=== PATIENT | male | born 1975 | race Caucasian/White ===

== ENCOUNTER 2018-08-18 21:18 | Emergency (ER) | payer MEDICAID ==
[~2018-08-18] VITALS: Ht 172.7 cm; Wt 109.8 kg
--- NOTE | 2018-08-18 21:30 | NUR ---
Pt ambulates to ER with c/o dog bite from a stray dog 2 hrs ago in [facility]. Laceration on left middle finger. Denies any numbness/tingling in fingers/hand.
[2018-08-18] MEDS ORDERED: NEOMY/BACITRA/POLYMYXIN B OINT UD PACKET TP ONE ×2 (21:43→21:45)
[2018-08-18] MEDS ORDERED: HYDROCODONE/APAP 10-325 MG TABLET ONE (21:44)
[2018-08-18] MEDS ORDERED: HYDROCODONE/APAP 10-325 MG TABLET PO ONE (21:45)
[2018-08-18] MEDS ORDERED: TDAP DIPH,PERTUSS,TET VAC/PF 0.5 ML DISP.SYRIN IM ONE ×2 (21:45→21:58)
--- NOTE | 2018-08-18 21:46 | NUR ---
X-ray at bedside.
--- NOTE | 2018-08-18 21:46 | NUR ---
GORGE JO speaking to [facility] (Public Health) on telephone.
--- NOTE | 2018-08-18 22:16 | NUR ---
Dr. Jimbo PENNINGTON MD speaking to [facility] Public [facility] informing us no to rabies series.
[2018-08-18] MEDS ORDERED: SULFAMETH/TRIMETH 800/160 MG TABLET PO ONE (22:30)
[2018-08-18] MEDS ORDERED: AMOXICILLIN-CLAVUL 875-125MG TABLET ONE (22:30)
[2018-08-18] MEDS ORDERED: SULFAMETH/TRIMETH 800/160 MG TABLET ONE (22:30)
[2018-08-18] MEDS ORDERED: AMOXICILLIN-CLAVUL 875-125MG TABLET PO ONE (22:30)
--- NOTE | 2018-08-18 22:41 | NUR ---
Patient discharged to home in stable conditon. Written and verbal after care instructions given. Patient verbalizes understanding of instructions. Pt ambulated out of ER in steady gait w cousin who will drive him home. Pt understands to have wound check in 2 days. All belongings w pt. NAD noted.
[2018-08-18 22:51] VITALS: BP 148/88
== END 2018-08-18 22:51 | disposition home or self-care (01) ==
LOC: ER 21:18
DX: S61.432A Puncture wound without foreign body of left hand, initial encounter (principal); S61.452A Open bite of left hand, initial encounter; W54.0XXA Bitten by dog, initial encounter; Y93.89 Activity, other specified; Y92.89 Other specified places as the place of occurrence of the external cause; Y99.8 Other external cause status
CPT/HCPCS: 73130; 90715; A4217; A4663

== ENCOUNTER 2018-08-21 01:49 | Emergency (ER) | payer MEDICAID ==
[~2018-08-21] VITALS: Ht 170.2 cm; Wt 97.5 kg
--- NOTE | 2018-08-21 03:30 | NUR ---
Dr Collins into eval patient
[2018-08-21] MEDS ORDERED: PIPERACILLIN/TAZOBACTAM/D5W 50 ML IV ONE (03:41)
[2018-08-21] MEDS ORDERED: PIPERACILLIN SODIUM/TAZOBACTAM 3.375 G in IV DEXTROSE 5% 50 ML IV ONE (03:45)
[2018-08-21 03:55] LABS: BASOPHILS # (AUTO) 0.1 K/uL (0.0-8.0); BASOPHILS % (AUTO) 1.1 % (0.0-2.0); EOSINOPHILS # (AUTO) 0.2 K/uL (0.0-0.7); HEMATOCRIT 40.1 % (36.7-47.1); LYMPHOCYTES # (AUTO) 2.1 K/uL (20.0-40.0); LYMPHOCYTES % (AUTO) 32.3 % (20.5-51.5); MEAN CORPUSCULAR HEMOGLOBIN 30.1 uug (23.8-33.4); MEAN CORPUSCULAR HGB CONC 35 g/dL (32.5-36.3); MEAN CORPUSCULAR VOLUME 86.5 fL (73.0-96.2); MONOCYTES % (AUTO) 15.2 % (0.0-11.0); NEUTROPHILS # (AUTO) 3.2 K/uL (1.8-8.9); NEUTROPHILS % (AUTO) 48.4 % (38.5-71.5); PLATELET COUNT (AUTO) 232 K/uL (152-348); RED BLOOD CELL COUNT(AUTO) 4.64 MIL/uL (4.06-5.63); WHITE BLOOD COUNT (AUTO) 6.6 K/uL (3.6-10.2)
[2018-08-21 04:06] LABS: CREATININE 1.1 mg/dL (0.6-1.3); POTASSIUM 4.3 mmol/L (3.5-5.1)
[2018-08-21 04:13] LABS: BILIRUBIN,DIRECT 0.1 mg/dL (0.0-0.2); BILIRUBIN,TOTAL 0.5 mg/dL (0.2-1.0); TOTAL PROTEIN, SERUM 7.7 g/dL (6.4-8.2)
--- NOTE | 2018-08-21 05:02 | NUR ---
IV removed. Catheter intact and site benign. Pressure and 4x4 gauze applied to site. No bleeding noted.
--- NOTE | 2018-08-21 05:06 | NUR ---
Patient discharged to home in stable conditon. Written and verbal after care instructions given. Patient verbalizes understanding of instructions. Walked out of ER with no distress noted
[2018-08-21 05:08] VITALS: BP 138/85
[2018-08-21 05:19] LABS: EOSINOPHILS % (MANUAL) 2 % (0-8); LYMPHOCYTES % (MANUAL) 44 % (20-40); MONOCYTES % (MANUAL) 11 % (2-10); NEUTROPHILS % (MANUAL) 43 % (42-75)
== END 2018-08-21 05:08 | disposition home or self-care (01) ==
LOC: ER 01:51
DX: S61.452D Open bite of left hand, subsequent encounter (principal); S61.251D Open bite of left index finger without damage to nail, subsequent encounter; M65.9 Synovitis and tenosynovitis, unspecified; W54.0XXD Bitten by dog, subsequent encounter
CPT/HCPCS: 36415; 80048; 80076; 83605; 84484; 85025; 85730; 87040 ×2; 96365; 99283; J2543; 70030-TC; A4663

== ENCOUNTER 2018-09-01 19:30 | Inpatient (IN) | payer MEDICAID ==
[~2018-09-01] VITALS: Ht 172.7 cm; Wt 122.5 kg
--- NOTE | 2018-09-01 19:40 | NUR ---
Dr. Choi at bedside for MSE.
[2018-09-01] MEDS ORDERED: ONDANSETRON 4 MG/2 ML VIAL IV ONE (19:45)
[2018-09-01] MEDS ORDERED: KETOROLAC TROMETHAMINE 15 MG INJ IV ONE (19:45)
[2018-09-01] MEDS ORDERED: MORPHINE SULFATE 2 MG/1 ML DISP.SYRIN IV ONE (19:45)
[2018-09-01] MEDS ORDERED: IV NORMAL SALINE 1000 ML BAG IV ONE ×2 (19:45→21:30)
[2018-09-01] MEDS ORDERED: MORPHINE SULFATE 4 MG/1 ML DISP.SYRIN ONE (19:52)
[2018-09-01] MEDS ORDERED: KETOROLAC TROMETHAMINE 30 MG INJ ONE (19:53)
[2018-09-01] MEDS ORDERED: ONDANSETRON 4 MG/2 ML VIAL ONE (19:53)
[2018-09-01 19:54] LABS: BASOPHILS # (AUTO) 0.1 K/uL (0.0-8.0); BASOPHILS % (AUTO) 0.7 % (0.0-2.0); EOSINOPHILS # (AUTO) 0.1 K/uL (0.0-0.7); EOSINOPHILS % (AUTO) 0.7 % (0.0-7.0); HEMOGLOBIN 14.1 g/dL (12.5-16.3); LYMPHOCYTES # (AUTO) 2.5 K/uL (20.0-40.0); LYMPHOCYTES % (AUTO) 16.6 % (20.5-51.5); MEAN CORPUSCULAR HEMOGLOBIN 29.5 uug (23.8-33.4); MEAN CORPUSCULAR HGB CONC 34 g/dL (32.5-36.3); MEAN CORPUSCULAR VOLUME 85.7 fL (73.0-96.2); MONOCYTES # (AUTO) 1.4 K/uL (2.0-10.0); MONOCYTES % (AUTO) 9.4 % (0.0-11.0); NEUTROPHILS % (AUTO) 72.6 % (38.5-71.5); PLATELET COUNT (AUTO) 298 K/uL (152-348); RED BLOOD CELL COUNT(AUTO) 4.79 MIL/uL (4.06-5.63); WHITE BLOOD COUNT (AUTO) 15.2 K/uL (3.6-10.2)
[2018-09-01 20:00] LABS: *BILIRUBIN,URIN NEGATIVE (NEGATIVE); *BLOOD, URINE 3+ (NEGATIVE); *CLARITY,URINE SLIGHTLY CLOUDY (CLEAR); *COLOR,URINE YELLOW (YELLOW); *KETONES,URINE NEGATIVE (NEGATIVE); *UROBILINOGEN,URINE 0.2 E.U./dl (NORMAL); LEUKOCYTE ESTERASE ,URINE 1+ (NEGATIVE); NITRITE, URINE POSITIVE (NEGATIVE); UGLUCOSE NEGATIVE (NEGATIVE)
[2018-09-01 20:05] LABS: BACTERIA,URINE FEW /HPF (NONE SEEN); RBC,URINE 50-80 /HPF (0-3); SQUAMOUS EPITHELIAL CELL,UR FEW /HPF (NONE SEEN); WBC,URINE 20-50 /HPF (0-3)
[2018-09-01 20:06] LABS: CREATININE 1.1 mg/dL (0.6-1.3); POTASSIUM 3.8 mmol/L (3.5-5.1)
[2018-09-01 20:12] LABS: BILIRUBIN,DIRECT 0.2 mg/dL (0.0-0.2); BILIRUBIN,TOTAL 1.2 mg/dL (0.2-1.0); TOTAL PROTEIN, SERUM 8.7 g/dL (6.4-8.2)
--- NOTE | 2018-09-01 20:17 | NUR ---
Pt out of ER for CT.
--- NOTE | 2018-09-01 20:31 | NUR ---
Pt back to ER from CT.
[2018-09-01] MEDS ORDERED: CEFTRIAXONE 1 G in IV DEXTROSE 5% 50 ML IV ONE (21:00)
[2018-09-01] MEDS ORDERED: CEFTRIAXONE 1 G VIAL ONE (21:13)
--- NOTE | 2018-09-01 21:25 | NUR ---
Called [facility] to page Dr. Star Sanchez.
[2018-09-01] MEDS ORDERED: HYDROMORPHONE 1 MG/1 ML DISP.SYRIN ONE (21:29)
[2018-09-01] MEDS ORDERED: TAMSULOSIN HCL 0.4 MG CAP.SR.24H ONE (21:29)
[2018-09-01] MEDS ORDERED: HYDROMORPHONE 1 MG/1 ML DISP.SYRIN IV ONE (21:30)
[2018-09-01] MEDS ORDERED: TAMSULOSIN HCL 0.4 MG CAP.SR.24H PO ONE (21:30)
--- NOTE | 2018-09-01 22:06 | NUR ---
Dr. Choi on panel call with Dr. Star Sanchez. Patient accepted for admission to [facility] for diagnosis Infected Kidney Stone.
--- NOTE | 2018-09-01 22:13 | NUR ---
Report given to Francisco J Busch.
--- NOTE | 2018-09-01 22:30 | NUR ---
ADMITTED PATIENT IN MED SURG FLOOR UNDER THE CARE OF DR. RENDON. PATIENT PREFER TO KEEP HIS WALLET WITHIN. PATIENT ALERT ORIENTED. BELONGING LIST DONE.
[2018-09-01 22:59] VITALS: BP 151/94
[2018-09-01] MEDS ORDERED: KETOROLAC TROMETHAMINE 15 MG INJ IVP PRN (23:15)
[2018-09-01] MEDS ORDERED: MAGNESIUM HYDROXIDE 30 ML LIQUID UDC PO PRN (23:15)
[2018-09-01] MEDS ORDERED: HYDROMORPHONE 1 MG/1 ML DISP.SYRIN IM PRN (23:15)
[2018-09-01] MEDS ORDERED: ONDANSETRON 4 MG/2 ML VIAL IV PRN (23:15)
[2018-09-01] MEDS ORDERED: ZOLPIDEM 5 MG TABLET PO PRN (23:15)
[2018-09-01] MEDS ORDERED: ACETAMINOPHEN 325 MG TABLET PO PRN (23:15)
[2018-09-01] MEDS ORDERED: HYDROCODONE/APAP 5-325MG TABLET PO PRN (23:15)
[2018-09-02] MEDS: IV NS 1000 ML 1,000 ML IV PRN ×2 (02:45→17:28)
[2018-09-02 06:09] VITALS: BP 119/67
[2018-09-02 06:12] LABS: BASOPHILS # (AUTO) 0.1 K/uL (0.0-8.0); BASOPHILS % (AUTO) 0.6 % (0.0-2.0); EOSINOPHILS # (AUTO) 0.1 K/uL (0.0-0.7); EOSINOPHILS % (AUTO) 0.6 % (0.0-7.0); HEMATOCRIT 36.2 % (36.7-47.1); HEMOGLOBIN 12.8 g/dL (12.5-16.3); LYMPHOCYTES # (AUTO) 2.3 K/uL (20.0-40.0); LYMPHOCYTES % (AUTO) 18.1 % (20.5-51.5); MEAN CORPUSCULAR HEMOGLOBIN 30.1 uug (23.8-33.4); MEAN CORPUSCULAR HGB CONC 35 g/dL (32.5-36.3); MEAN CORPUSCULAR VOLUME 85.3 fL (73.0-96.2); MONOCYTES # (AUTO) 1.2 K/uL (2.0-10.0); NEUTROPHILS # (AUTO) 8.8 K/uL (1.8-8.9); NEUTROPHILS % (AUTO) 70.7 % (38.5-71.5); PLATELET COUNT (AUTO) 260 K/uL (152-348); RED BLOOD CELL COUNT(AUTO) 4.24 MIL/uL (4.06-5.63); WHITE BLOOD COUNT (AUTO) 12.5 K/uL (3.6-10.2)
[2018-09-02 06:23] LABS: MAGNESIUM 1.6 mg/dL (1.8-2.4); PHOSPHOROUS 2.3 mg/dL (2.5-4.9); POTASSIUM 3.6 mmol/L (3.5-5.1)
--- NOTE | 2018-09-02 06:49 | NUR ---
PATIENT ASLEEP BUT EASILY AROUSABLE, NO COMPLAIN OF PAIN, CONTINUE TO STRAIN URINE. PATIENT HAS SLIGHT ELEVATED TEMP. REFUSED PAIN MEDICATIONS, TEACH AND ASSIST PATIENT TO UNCOVER HIMSELF FROM TOO MUCH BLANKET. PATIENT VOIDING FREELY CONT TO MONITOR, COOLING MEASURE CONTINUE.
--- NOTE | 2018-09-02 08:15 | NUR ---
PATIENT IS AWAKE ALERT AND ORIENTED DENIES PATIENT OR DISCOMFORTS AT THIS TIME REMAIN ON IVF ORDERED WITH NO S/S OF INFILTERATION ON SITE ABLE TO AMBULATE TO THE BATHROOM VOIDED ADEQUATE AMOUNT ALL URINE CONTINUE TO BE STRAINED WITH NO STONES AT THIS TIME.AFEBRILE WILL CONTINUE TO OBSERVE.TOLERATED HIS BREAKFAST WITH NO NAUSEA OR VOMITING AT THIS TIME.
[2018-09-02] MEDS: TAMSULOSIN HCL 0.4 MG CAP.SR.24H PO SCH ×2 (08:34→20:12)
[2018-09-02 12:02] VITALS: BP 122/76
[2018-09-02] MEDS ORDERED: MAGNESIUM SULFATE/D5W 100 ML IV SCH (12:30)
[2018-09-02] MEDS ORDERED: NEUTRA PHOS PACKET PO ONE ×2 (12:30→18:00)
--- NOTE | 2018-09-02 13:23 | NUR ---
PHOS LEVEL IS 2.3 AND MAG IS 1.6 PATIENT SEEN BY PASCHUAL TUBE CUTTER WITH NEW REPLACEMENT ORDERS AND NOTED PATIENT EDUCATED ON THE LOW LYTE LEVELS AND EXPRESSED UNDERSTANDING
[2018-09-02] MEDS ORDERED: MAGNESIUM SULFATE 2 GM in IV DEXTROSE 5% 100 ML IV ONE (13:30)
[2018-09-02 16:18] VITALS: BP 134/68
--- NOTE | 2018-09-02 18:00 | NUR ---
CONTINUE TO STRAIN URINE WITH NO STONES AT THIS TIME.REMAIN ON IVF ORDERED NOT IN DISTRESS AT THIS TIME
--- NOTE | 2018-09-02 19:20 | NUR ---
Received patient lying in bed. AAOx4. In no acute distress. Denies any pain or SOB. IV site on right AC intact and patent. IVF infusing. Safety measure initiated and call snow within reach.
[2018-09-02 20:00] VITALS: BP 130/71
[2018-09-02] MEDS ORDERED: CEFTRIAXONE 1 G in IV DEXTROSE 5% 50 ML IV SCH (21:00)
[2018-09-03 04:00] VITALS: BP 143/83
[2018-09-03] MEDS: IV NS 1000 ML 1,000 ML IV PRN ×2 (05:19→21:56)
--- NOTE | 2018-09-03 06:28 | NUR ---
AAOx4. In no acute distress. Denies any pain or SOB. IV site on right AC intact and patent. IVF infusing. No adverse effect noted from IV ABS. Continue to strain urine, no kidney stones noted. Needs assessed and attended to. Safety measure maintained and call snow within reach.
[2018-09-03 06:30] LABS: BASOPHILS # (AUTO) 0.1 K/uL (0.0-8.0); BASOPHILS % (AUTO) 0.9 % (0.0-2.0); EOSINOPHILS # (AUTO) 0.1 K/uL (0.0-0.7); EOSINOPHILS % (AUTO) 1.8 % (0.0-7.0); HEMATOCRIT 39.5 % (36.7-47.1); LYMPHOCYTES # (AUTO) 2.3 K/uL (20.0-40.0); LYMPHOCYTES % (AUTO) 27.7 % (20.5-51.5); MEAN CORPUSCULAR HEMOGLOBIN 30.3 uug (23.8-33.4); MEAN CORPUSCULAR HGB CONC 36 g/dL (32.5-36.3); MEAN CORPUSCULAR VOLUME 85.3 fL (73.0-96.2); MONOCYTES # (AUTO) 1.1 K/uL (2.0-10.0); NEUTROPHILS # (AUTO) 4.5 K/uL (1.8-8.9); NEUTROPHILS % (AUTO) 55.6 % (38.5-71.5); PLATELET COUNT (AUTO) 287 K/uL (152-348); RED BLOOD CELL COUNT(AUTO) 4.63 MIL/uL (4.06-5.63); WHITE BLOOD COUNT (AUTO) 8.2 K/uL (3.6-10.2)
[2018-09-03 06:44] LABS: CREATININE 0.9 mg/dL (0.6-1.3); MAGNESIUM 1.9 mg/dL (1.8-2.4); PHOSPHOROUS 2.4 mg/dL (2.5-4.9); POTASSIUM 3.7 mmol/L (3.5-5.1)
--- NOTE | 2018-09-03 07:15 | NUR ---
PATIENT IS IN BED AWAKE ALERT AND ORIENTED DENIES PAIN OR DISCOMFORTS AT THIS TIME REMAIN ON IVF ORDERED WITH NO S/S OF INFILTERATION ON SITE CONTINUES TO STRAIN URINE AT THIS TIME CALL LIGHTS AND PERSONAL BELONGINGS ARE WITHIN EASY REACH WILL CONTINUE TO OBSERVE.
[2018-09-03] MEDS ORDERED: NEUTRA PHOS PACKET PO ONE (08:15)
[2018-09-03] MEDS: TAMSULOSIN HCL 0.4 MG CAP.SR.24H PO SCH ×2 (08:32→20:52)
[2018-09-03 11:08] VITALS: BP 135/82
--- NOTE | 2018-09-03 12:18 | NUR ---
PATIENT SEEN AND EXAMINED BY PASCHUAL DIRECTOR OF MEDICAL REVIEW WITH ORDER FOR PHYSICIAN CONSULT DUE TO ELEVATED TOTAL BILIRUBIN.
--- NOTE | 2018-09-03 14:00 | NUR ---
PATIENT SEEN BY THE PHYSICAL THERAPIST FOR AMBULATION WAS ABLE TO WALK TO THE DOOR WITH THE FRONT WHEEL WALKER AND TOLERATED FAIRLY WELL AND BTB Addendum: 09/03/18 at 1817 by CINDI RILEY RN ERROR WRONG PATIENT
[2018-09-03] MEDS: CEphaleXIN 500 MG CAPSULE PO SCH ×2 (14:17→18:07)
[2018-09-03 15:08] VITALS: BP 118/66
--- NOTE | 2018-09-03 16:00 | NUR ---
MAGNESSIUM LEVEL IS 1.7 SEEN BY JOSE LOO WITH NEW ORDER FOR MAG REPLACEMENTS AND NOTED. Addendum: 09/03/18 at 1816 by CINDI RILEY RN ERROR WRONG PATIENT
--- NOTE | 2018-09-03 17:30 | NUR ---
IV SITE POSITIONAL CHANGED TO HIS LEFT HAND GAUGE NUMBER 20 WITH ONE ATTEMPT AND CONTINUED WITH IVF ORDERED.
--- NOTE | 2018-09-03 18:12 | NUR ---
RESTING APPETITE WAS FAIR FOR DINNER ASSISTED PATIENT IS AWAKE ALERT WITH DISORIENTATION ABLE TO VERBALISE SIMPLE NEEDS MADE COMFORTABLE. Addendum: 09/03/18 at 1816 by CINDI RILEY RN ERROR WRONG PATIENT
--- NOTE | 2018-09-03 18:16 | NUR ---
ERROR WRONG PATIENT
--- NOTE | 2018-09-03 18:17 | NUR ---
PATIENT SEEN AND EXAMINED BY CYNTHIA COLIN IC DESIGNER GATE ARRAYS WITH NEW ORDERS AND NOTED
[2018-09-03 18:44] LABS: BILIRUBIN,DIRECT 0.1 mg/dL (0.0-0.2); BILIRUBIN,TOTAL 0.5 mg/dL (0.2-1.0); TOTAL PROTEIN, SERUM 7.7 g/dL (6.4-8.2)
--- NOTE | 2018-09-03 19:00 | NUR ---
Received bedside report from AM nurse. Patient laying in bed, resting comfortably. Patient is alert/oriented x 4 and verbalizes no pain or discomfort at this time. IV site patent and intact with NS running @ 100 mL/hr. Call light within reach at all times.
[2018-09-03 20:00] VITALS: BP 144/86
--- NOTE | 2018-09-03 23:00 | NUR ---
ASSISTED PATIENT TO BATHROOM. PATIENT VOIDED. STRAINED URINE, WITH 0 STONES/CALCULI NOTE
[2018-09-04] MEDS: CEphaleXIN 500 MG CAPSULE PO SCH ×4 (00:03→17:10)
[2018-09-04 04:00] VITALS: BP 132/87
--- NOTE | 2018-09-04 05:00 | NUR ---
RESIDENT IN BED RESTING COMFORTABLY. PATIENT VOIDING WELL, NO COMPLAINTS OF PAINFUL URINATION. ALL URINE STRAINED WITH NO EVIDENCE OF RENAL STONE/CALCULI THIS SHIFT. ALL NURSING NEEDS MET PROMPTLY. CALL LIGHT WITHIN REACH AT ALL TIMES. WILL CONTINUE TO MONITOR
[2018-09-04] MEDS ORDERED: PANTOPRAZOLE SODIUM 40 MG TABLET.DR PO SCH (07:00)
[2018-09-04 07:28] LABS: BASOPHILS % (AUTO) 0.8 % (0.0-2.0); EOSINOPHILS # (AUTO) 0.2 K/uL (0.0-0.7); EOSINOPHILS % (AUTO) 3.1 % (0.0-7.0); HEMATOCRIT 38.4 % (36.7-47.1); HEMOGLOBIN 13.5 g/dL (12.5-16.3); LYMPHOCYTES # (AUTO) 2.1 K/uL (20.0-40.0); LYMPHOCYTES % (AUTO) 35.3 % (20.5-51.5); MEAN CORPUSCULAR HEMOGLOBIN 29.8 uug (23.8-33.4); MEAN CORPUSCULAR HGB CONC 35 g/dL (32.5-36.3); MEAN CORPUSCULAR VOLUME 85.1 fL (73.0-96.2); MONOCYTES # (AUTO) 0.9 K/uL (2.0-10.0); MONOCYTES % (AUTO) 15.6 % (0.0-11.0); NEUTROPHILS # (AUTO) 2.7 K/uL (1.8-8.9); NEUTROPHILS % (AUTO) 45.2 % (38.5-71.5); PLATELET COUNT (AUTO) 284 K/uL (152-348); RED BLOOD CELL COUNT(AUTO) 4.52 MIL/uL (4.06-5.63); WHITE BLOOD COUNT (AUTO) 5.9 K/uL (3.6-10.2)
[2018-09-04 07:39] LABS: CREATININE 0.8 mg/dL (0.6-1.3); PHOSPHOROUS 2.8 mg/dL (2.5-4.9); POTASSIUM 3.8 mmol/L (3.5-5.1)
[2018-09-04] MEDS: TAMSULOSIN HCL 0.4 MG CAP.SR.24H PO SCH (08:48)
[2018-09-04 09:15] LABS: EOSINOPHILS % (MANUAL) 2 % (0-8); LYMPHOCYTES % (MANUAL) 37 % (20-40); MONOCYTES % (MANUAL) 16 % (2-10); NEUTROPHILS % (MANUAL) 45 % (42-75)
--- NOTE | 2018-09-04 10:55 | NUR ---
D/C PLANNING TO HOME PATIENT WILL BE DISCHARGED TODAY PER PASCHUAL ACETYLENE GAS COMPRESSOR AWAITING FOR ORDERS.
[2018-09-04 11:29] VITALS: BP 106/60
[2018-09-04] MEDS ORDERED: CEPH500C2 PO (14:05)
[2018-09-04] MEDS ORDERED: TAMS-3 PO (14:05)
--- NOTE | 2018-09-04 14:15 | NUR ---
NOTED ORDER TO DISCHARGE PATIENT HOME TODAY PATIENT AWARE STATED WILL CALL FOR HIS RIDE HEPLOCK REMOVED AT THIS TIME.
--- NOTE | 2018-09-04 15:00 | NUR ---
DISCHARGE INSTRUCTIONS AND PRESCRIPTIONS GIVEN TO PATIENT AND PATIENT EDUCATED ON STRAINING HIS URINE EACH VOID AND CHECK FOR STONES AND ALSO TO FOLLOW UP WITH HIS PRIMARY DOCTOR PATIENT STATED HAS NO PRIMARY DOCTOR FOR THE HOOD MAKER JIG MILL OPERATOR AWARE AND WILL SEE PATIENT AND GIVE HIM LISTS OF DOCTORS AND FACILITIES FOR FUTHER CARE.PATIENT WAS ALSO NOTIFIED TO FOLLOW UP WITH A PIPE ROLLER FOR ENDOSCOPY AN OUT PATIENT AND HE EXPRESSED UNDERSTANDING.
--- NOTE | 2018-09-04 15:13 | NUR ---
PATIENT STATED WAITING FOR HIS FRIEND MARLENE TO PICK HIM UP PATIENT AWARE TO LET THE NURSE KNOW WHEN HIS RIDE IS HERE AND HE EXPRESSED UNDERSTANDING.
[2018-09-04 15:21] VITALS: BP_SYST 102; BP_SYST 127; BP_DIAS 49; BP_DIAS 66
--- NOTE | 2018-09-04 18:00 | NUR ---
PATIENT DISCHARGED PICKED UP BY HIS FRIEND IN SATISFACTORY CONDITION AMBULATORY DENIES PAIN OR DISCOMFORTS AT THIS TIME.
== END 2018-09-04 18:00 | disposition home or self-care (01) | DRG 720 ==
LOC: ER 19:30 → MEDSURG3 22:24
PROVIDERS: ADMIT Nurse Practitioner Acute Care; ATTEND Nurse Practitioner Acute Care
DX: A41.51 Sepsis due to Escherichia coli [E. coli] (principal); D68.59 Other primary thrombophilia; E66.01 Morbid (severe) obesity due to excess calories; K76.0 Fatty (change of) liver, not elsewhere classified; E83.42 Hypomagnesemia; E83.39 Other disorders of phosphorus metabolism; N39.0 Urinary tract infection, site not specified; N20.0 Calculus of kidney; Z68.41 Body mass index [BMI] 40.0-44.9, adult; N13.2 Hydronephrosis with renal and ureteral calculous obstruction; Z71.3 Dietary counseling and surveillance; K21.9 Gastro-esophageal reflux disease without esophagitis; R31.0 Gross hematuria; R73.9 Hyperglycemia, unspecified
CPT/HCPCS: 36415; 83735; 84100; 85025; 87077; 87086; A4663; G0378; J0696; J1170; J1885; J2270; J2405; J3475; J7030; J7060